=== PATIENT | female | born 1950 | race Caucasian/White ===

== ENCOUNTER 2022-03-22 03:13 | Inpatient (IN) | payer MEDICARE, OTHER ==
[~2022-03-22] VITALS: Ht 167.6 cm; Wt 69.2 kg
[2022-03-22 03:38] LABS: BASOPHIL 0.8 % (0-2); EOSINOPHIL 3.1 % (0-7); HCT 35.8 % (37.0-47.0); HGB 11.4 g/dl (12.5-16.0); LYMPHOCYTE 31.2 % (15-48); MCH 21.6 pg (25.0-31.0); MCHC 31.8 g/dL (32.0-36.0); MCV 67.8 fL (78.0-100.0); MONOCYTE 7.7 % (0-12); MPV 10.3 fL (6.0-9.5); NEUTROPHIL 56.7 % (41-80); NRBC 0.3; PLT 326 K/uL (150-400); RBC 5.28 M/uL (4.20-5.40); RDW 18.1 % (11.5-14.0); WBC 11.5 K/uL (4.0-10.5)
[2022-03-22 03:59] LABS: ALBUMIN 4.3 g/dL (3.4-5.0); BILIRUBIN - TOTAL 0.8 mg/dL (0.2-1.0); BUN/CREAT RATIO (CALC) 21.6 RATIO; CREATININE 0.74 mg/dL (0.51-0.95); GLOBULIN (CALCULATION) 3.9 g/dL; POTASSIUM 4.4 mmol/L (3.5-5.1); TOTAL PROTEIN 8.2 g/dL (6.4-8.2)
[2022-03-22 04:00] LABS: LACTIC ACID 1.5 mmol/L (0.4-1.9)
[2022-03-22 04:34] LABS: CORONAVIRUS 2019 SARS-COV-2 NEGATIVE (NEGATIVE); INFLUENZA A NAA NEGATIVE (NEGATIVE)
[2022-03-22] MEDS ORDERED: LATANOPROST2.5 ML EYEBOTH (10:01)
[2022-03-22] MEDS ORDERED: ROSUVASTATIN CA10 MG PO (10:01)
[2022-03-22] MEDS ORDERED: LOPRESSOR25 MG PO (10:02)
[2022-03-22] MEDS ORDERED: AMLODIPINE BESYL5 MG PO (10:02)
[2022-03-22] MEDS ORDERED: MAGNESIUM OXID400 M1 PO (10:04)
[2022-03-22] MEDS ORDERED: ELIQUIS5 MG PO (10:41)
--- NOTE | 2022-03-22 14:46 | NUR ---
PT TELE ALARMED DEMONSTRATING REGULAR BUT TACHY RYTHMN WITH RATE JUMPING FROM 84 BPM TO 145 BPM. MD NOTIFIED AND A STAT EKG ORDER PUT IN, RESP NOTIFIED. EKG STATES SINUS TACH WITH SECOND DEGREE AVB, MD SHOWED EKG, SENT TO [facility] LUZ WHICH DETERMINED RYTHMN TO BE AFLUTTER. MD ORDERED 10MG CARDIZEM BOLUS IVP AND TO START CARDIZEM TITRATION DRIP. DRIP STARTED AT 5MG/HR AT 1435. PT HOOKED TO TELEMON MONITORING BP Q15MIN. BP 124/72 HEART RATE 119 AT THE TIME OF INFUSION. PRIMARY RN NOTIFIED OF ORDERS.
[2022-03-22 15:44] LABS: INR 1.45 (0.9-1.2); PROTHROMBIN TIME 16.9 SECONDS (11.8-13.4)
[2022-03-22 16:32] LABS: IRON % SATURATION 29.3 %SAT (20-50)
[2022-03-23 04:05] LABS: BUN/CREAT RATIO (CALC) 19.7 RATIO; CREATININE 0.76 mg/dL (0.51-0.95)
[2022-03-23 04:06] LABS: BASOPHIL 0.6 % (0-2); EOSINOPHIL 2.2 % (0-7); HCT 32.8 % (37.0-47.0); HGB 10.5 g/dl (12.5-16.0); LYMPHOCYTE 28.3 % (15-48); MCH 21.3 pg (25.0-31.0); MCV 66.4 fL (78.0-100.0); MONOCYTE 8.5 % (0-12); MPV 10.2 fL (6.0-9.5); NEUTROPHIL 60.1 % (41-80); NRBC 0.2; PLT 259 K/uL (150-400); RBC 4.94 M/uL (4.20-5.40); RDW 17.2 % (11.5-14.0); WBC 9.8 K/uL (4.0-10.5)
== END 2022-03-23 13:43 | disposition other institution (70) | DRG 291 ==
LOC: FER 03:13 → FTCU 07:52 → FER 08:40 → FTCU 03-23 13:43
PROVIDERS: Internal Medicine; ADMIT Family Medicine
PROC: B24BZZZ Ultrasonography of Heart with Aorta (ICD-10-PCS; principal; 2022-03-22)
DX: I11.0 Hypertensive heart disease with heart failure (principal); J96.01 Acute respiratory failure with hypoxia; N17.9 Acute kidney failure, unspecified; I48.92 Unspecified atrial flutter; I50.9 Heart failure, unspecified; Z20.822 Contact with and (suspected) exposure to COVID-19; I48.91 Unspecified atrial fibrillation; D50.9 Iron deficiency anemia, unspecified; E78.5 Hyperlipidemia, unspecified; E11.9 Type 2 diabetes mellitus without complications; Z87.891 Personal history of nicotine dependence; Z90.710 Acquired absence of both cervix and uterus; Z90.722 Acquired absence of ovaries, bilateral; Z98.890 Other specified postprocedural states; Z79.899 Other long term (current) drug therapy; Z88.5 Allergy status to narcotic agent; Z82.49 Family history of ischemic heart disease and other diseases of the circulatory system; Z79.01 Long term (current) use of anticoagulants; Z86.718 Personal history of other venous thrombosis and embolism
CPT/HCPCS: 36415; 36600; 71045; 71275; 80048; 80053; 82550; 82607; 82803; 83036; 83540; 83550; 83605; 83880; 84145; 84443; 84484; 85025; 85610; 87040; 93005; 94010; 94640; 94664; J1940; J2543; J3010; J3475; J7030; Q9967; U0002

== ENCOUNTER 2022-04-19 23:55 | Day surgery (SDCO) | payer MEDICARE, OTHER ==
[~2022-04-19] VITALS: Ht 170.2 cm; Wt 60.4 kg
[~2022-04-19 23:55] MED LIST: AMLODIPINE BESYL5 MG PO; ELIQUIS5 MG PO; LATANOPROST2.5 ML EYEBOTH; LOPRESSOR25 MG PO; MAGNESIUM OXID400 M1 PO; ROSUVASTATIN CA10 MG PO
[2022-04-20 00:26] LABS: HCT 34.6 % (37.0-47.0); HGB 10.7 g/dl (12.5-16.0); LYMPHOCYTE 41.5 % (15-48); MCH 20.7 pg (25.0-31.0); MCHC 30.9 g/dL (32.0-36.0); MCV 66.9 fL (78.0-100.0); MONOCYTE 10.5 % (0-12); MPV 10.6 fL (6.0-9.5); NEUTROPHIL 43.7 % (41-80); NRBC 0; PLT 365 K/uL (150-400); RBC 5.17 M/uL (4.20-5.40); RDW 15.3 % (11.5-14.0); WBC 9.1 K/uL (4.0-10.5)
[2022-04-20 00:58] LABS: BILIRUBIN - TOTAL 0.5 mg/dL (0.2-1.0); BUN/CREAT RATIO (CALC) 21.6 RATIO; CREATININE 0.97 mg/dL (0.51-0.95); GLOBULIN (CALCULATION) 3.9 g/dL; POTASSIUM 4.3 mmol/L (3.5-5.1); TOTAL PROTEIN 7.9 g/dL (6.4-8.2)
[2022-04-20 01:06] LABS: CORONAVIRUS 2019 SARS-COV-2 NEGATIVE (NEGATIVE); INFLUENZA A NAA NEGATIVE (NEGATIVE)
[2022-04-20] MEDS ORDERED: METOPROLOL SUCC25 MG PO (05:18)
[2022-04-20] MEDS ORDERED: LOPRESSOR25 MG PO ×2 (05:19→11:14)
[2022-04-20] MEDS ORDERED: AMIODARONE HCL200 M1 PO ×3 (05:20→11:14)
[2022-04-20 06:54] LABS: HGB 10.9 g/dl (12.5-16.0); MCH 20.7 pg (25.0-31.0); MCHC 31.1 g/dL (32.0-36.0); MCV 66.4 fL (78.0-100.0); MPV 10.6 fL (6.0-9.5); RBC 5.27 M/uL (4.20-5.40); RDW 15.2 % (11.5-14.0); WBC 6.6 K/uL (4.0-10.5)
[2022-04-20 07:59] LABS: CKMB <0.5 ng/mL (0.0-3.6); PRO-BNP 2314 pg/mL (<125)
[2022-04-20 08:04] LABS: BUN/CREAT RATIO (CALC) 24.1 RATIO; CREATININE 0.83 mg/dL (0.51-0.95); MAGNESIUM 1.7 mg/dL (1.8-2.4); PHOSPHORUS 4.2 mg/dL (2.6-4.7); POTASSIUM 3.5 mmol/L (3.5-5.1)
[2022-04-20] MEDS ORDERED: KLOR-CON 1010 MEQ PO ×2 (11:13→11:19)
[2022-04-20] MEDS ORDERED: FUROSEMIDE 20MG20 MG PO (11:13)
--- NOTE | 2022-04-20 16:08 | NUR ---
04/20/22 Ms. Euceda lives alone. She uses a cane for community anbulation. Her PCP is David Nagy in [place]. She is able to meet her financial obligations. - No interventions were required.
== END 2022-04-20 12:37 | disposition home or self-care (01) ==
LOC: FER 23:55 → FMS 04-20 04:01
PROVIDERS: Emergency Medicine; Nurse Practitioner; ADMIT Internal Medicine
DX: I11.0 Hypertensive heart disease with heart failure (principal); I50.31 Acute diastolic (congestive) heart failure; E11.9 Type 2 diabetes mellitus without complications; J96.01 Acute respiratory failure with hypoxia; R00.1 Bradycardia, unspecified; E78.5 Hyperlipidemia, unspecified; Z87.891 Personal history of nicotine dependence; Z88.5 Allergy status to narcotic agent; Z79.01 Long term (current) use of anticoagulants; Z79.899 Other long term (current) drug therapy; Z20.822 Contact with and (suspected) exposure to COVID-19
CPT/HCPCS: 36415; 71045; 80048; 80053; 80061; 82553; 82728; 83036; 83735; 83880; 84100; 84145; 84484; 85025; 93005; 94010; 94640; G0378; J1940; J2930; U0002

== ENCOUNTER 2022-05-02 12:11 | Emergency (ER) | payer MEDICARE, OTHER ==
[~2022-05-02 12:11] MED LIST changes: +AMIODARONE HCL200 M1 PO; +FUROSEMIDE 20MG20 MG PO; +KLOR-CON 1010 MEQ PO; +METOPROLOL SUCC25 MG PO
[2022-05-02 14:01] LABS: EOSINOPHIL 1.2 % (0-7); HCT 35.2 % (37.0-47.0); HGB 11.2 g/dl (12.5-16.0); LYMPHOCYTE 22.4 % (15-48); MCH 20.9 pg (25.0-31.0); MCHC 31.8 g/dL (32.0-36.0); MCV 65.7 fL (78.0-100.0); MONOCYTE 7.6 % (0-12); MPV 11.1 fL (6.0-9.5); NEUTROPHIL 67.6 % (41-80); NRBC 0; PLT 319 K/uL (150-400); RBC 5.36 M/uL (4.20-5.40); RDW 15.1 % (11.5-14.0); WBC 8.3 K/uL (4.0-10.5)
[2022-05-02 14:06] LABS: INR 1.43 (0.9-1.2)
[2022-05-02 14:27] LABS: ALBUMIN 4.3 g/dL (3.4-5.0); BILIRUBIN - TOTAL 0.7 mg/dL (0.2-1.0); BUN/CREAT RATIO (CALC) 27.1 RATIO; CREATININE 1.07 mg/dL (0.51-0.95); FT4 (FREE T4) 1.2 ng/dL (0.76-1.46); GLOBULIN (CALCULATION) 3.9 g/dL; MAGNESIUM 1.8 mg/dL (1.8-2.4); POTASSIUM 4.2 mmol/L (3.5-5.1); TOTAL PROTEIN 8.2 g/dL (6.4-8.2)
== END 2022-05-02 18:40 | disposition other institution (70) ==
LOC: FER 12:11
PROVIDERS: Emergency Medicine
DX: R00.1 Bradycardia, unspecified (principal); E11.9 Type 2 diabetes mellitus without complications; I10 Essential (primary) hypertension; Z88.5 Allergy status to narcotic agent
CPT/HCPCS: 36415; 71046; 80053; 83735; 83880; 84439; 84443; 84484; 85025; 85610; 85730; 93005